=== PATIENT | male | born 2000 | race Caucasian/White ===

== ENCOUNTER 2022-08-20 21:20 | Emergency (ER) | payer OTHER ==
[~2022-08-20] VITALS: Ht 175.3 cm; Wt 79.4 kg
--- NOTE | 2022-08-21 | NUR ---
EMT AT PT'S BEDSIDE TO CLEAN LAC ON R HAND BETWEEN 1ST & 2ND DIGIT.
--- NOTE | 2022-08-21 00:02 | NUR ---
DR NAFISA METZGER AT PT'S BEDSIDE FOR EVAL
[2022-08-21] MEDS ORDERED: LIDOCAINE HCL/MPF 1% 30 ML VIAL IJ ONE (00:06)
--- NOTE | 2022-08-21 00:22 | NUR ---
DR SKELTON DO AT PT'S BEDSIDE FOR LAC TO R HAND BETWEEN R 1ST & 2ND DIGIT
[2022-08-21] MEDS ORDERED: TDAP [DIPH/PERTUSSIS/TET] 0.5 ML VIAL IM ONE ×2 (00:30→00:58)
--- NOTE | 2022-08-21 00:52 | NUR ---
Naomie ramirez in ED - 08/21/22 at 0102 by JAMEE Patient discharged to home in stable condition. Written and verbal after care instructions given. Patient verbalizes understanding of instruction.
--- NOTE | 2022-08-21 01:02 | NUR ---
XRAY OF HAND DONE AT BEDSIDE
--- NOTE | 2022-08-21 03:30 | NUR ---
Patient discharged to home in stable condition. Written and verbal after care instructions given. Patient verbalizes understanding of instruction.
[2022-08-21 03:52] VITALS: BP 133/83
== END 2022-08-21 03:30 | disposition home or self-care (01) ==
LOC: ER 21:22
DX: S61.411A Laceration without foreign body of right hand, initial encounter (principal); Z88.8 Allergy status to other drugs, medicaments and biological substances; V89.2XXA Person injured in unspecified motor-vehicle accident, traffic, initial encounter; Y93.89 Activity, other specified; Y92.89 Other specified places as the place of occurrence of the external cause; Y99.8 Other external cause status
CPT/HCPCS: 99283; 12001; 90471; 90715; 73130; J3490